=== PATIENT | female | born 1930 | race Caucasian/White ===

== ENCOUNTER 2017-07-14 15:17 | Emergency (ER) | payer MEDICARE, BC ==
[~2017-07-14] VITALS: Ht 175.3 cm; Wt 72.6 kg
[2017-07-14 15:30] VITALS: BP 119/77
[2017-07-14] MEDS ORDERED: Ertapenem 1 GM in NS 55 ML IVPB ONE (15:45)
[2017-07-14] MEDS ORDERED: cefTRIAXone 2 GM in NS 110 ML IVPB ONE (15:45)
[2017-07-14] MEDS ORDERED: Ertapenem (INVanz) 1gm Inj ONE (15:49)
[2017-07-14] MEDS ORDERED: DOCUSATE SODIU100 MG ORAL (16:05)
[2017-07-14] MEDS ORDERED: ATORVASTATIN CA40 MG ORAL (16:05)
[2017-07-14] MEDS ORDERED: FUROSEMIDE20 M1 ORAL (16:05)
[2017-07-14] MEDS ORDERED: ASPIR 8181 MG ORAL (16:05)
[2017-07-14] MEDS ORDERED: LEVETIRACETAM500 MG ORAL (16:05)
[2017-07-14] MEDS ORDERED: NITROFURANTOIN100 MG PO (16:05)
[2017-07-14] MEDS ORDERED: FOLIC ACID1 MG ORAL (16:05)
[2017-07-14] MEDS ORDERED: LEXAPRO10 MG ORAL (16:05)
[2017-07-14 16:10] LABS: MEAN CORPUSCULAR HEMOGLOBIN 32.3 PG (27.0-31.0); MEAN CORPUSCULAR HGB CONC 32.1 G/DL (32.0-36.0); MEAN CORPUSCULAR VOLUME 101 FL (80-99); MEAN PLATELET VOLUME 7.1 FL (6.5-10.1); PLATELET COUNT 120 K/UL (150-450); RED BLOOD COUNT 4.26 M/UL (4.20-5.40); RED CELL DISTRIBUTION WIDTH 12.6 % (11.6-14.8); WHITE BLOOD COUNT 12.8 K/UL (4.8-10.8)
[2017-07-14 16:13] LABS: BASOPHILS % (AUTO) 0.4 % (0.0-2.0); EOSINOPHILS % (AUTO) 0.2 % (0.0-3.0); LYMPHOCYTES % (AUTO) 2.8 % (20.0-45.0); MONOCYTES % (AUTO) 2.7 % (1.0-10.0)
[2017-07-14] MEDS ORDERED: ZYPREXA2.5 MG ORAL (16:14)
[2017-07-14] MEDS ORDERED: VITAMIN D400 INTLU ORAL (16:15)
[2017-07-14] MEDS ORDERED: SENNA8.6 M2 PO (16:15)
[2017-07-14] MEDS ORDERED: PREDNISONE2.5 MG ORAL (16:15)
[2017-07-14] MEDS ORDERED: BISACODYL5 MG ORAL (16:15)
[2017-07-14] MEDS ORDERED: ACETAMINOPHEN325 M1 ORAL (16:15)
[2017-07-14] MEDS ORDERED: ZANTAC150 MG ORAL (16:15)
[2017-07-14] MEDS ORDERED: PANTOPRAZOLE SO40 MG ORAL (16:15)
[2017-07-14] MEDS ORDERED: HYDRALAZINE HCL25 M1 ORAL (16:15)
[2017-07-14] MEDS ORDERED: MULTIVITAMINS1 EAC2 ORAL (16:15)
[2017-07-14 16:43] LABS: ALANINE AMINOTRANSFERASE 67 U/L (12-78); ALBUMIN/GLOBULIN RATIO 0.9 (1.0-2.7); ANION GAP 5 (5-15); ASPARTATE AMINO TRANSFERASE 83 U/L (15-37); CALCIUM 9.7 MG/DL (8.5-10.1); CARBON DIOXIDE 30 MMOL/L (21-32); CHLORIDE 102 MMOL/L (98-107); CKMB 2.4 NG/ML (0.0-3.6); POTASSIUM 3.7 MMOL/L (3.5-5.1); SODIUM 137 MMOL/L (136-145); TOTAL PROTEIN 7.3 G/DL (6.4-8.2)
--- NOTE | 2017-07-14 17:00 | Diagnostic Imaging Report ---
Indication: Dyspnea Comparison: None A single view chest radiograph was obtained. Findings: Interstitial edema demonstrated with cardiomegaly. Bones are osteopenic. Aorta is ectatic and calcified. IVC filter noted. Impression: CHF
[2017-07-14 17:48] VITALS: BP 116/75
[2017-07-14 19:30] VITALS: BP 120/65
[2017-07-14 20:11] LABS: APPEARANCE,URINE CLEAR; KETONES,URINE NEGATIVE (NEGATIVE); LEUKOCYTE ESTERASE ,URINE 1+ (NEGATIVE); NITRITE,URINE NEGATIVE (NEGATIVE); PH,URINE 6.5 (4.5-8.0); PROTEIN,URINE NEGATIVE (NEGATIVE); UROBILINOGEN,URINE NORMAL MG/DL (0.0-1.0)
[2017-07-14 20:26] LABS: RBC,URINE 0-2 /HPF (0 - 2); SQUAMOUS EPITHELIAL CELL,UR OCCASIONAL /LPF (NONE/OCC)
[2017-07-14 20:35] VITALS: BP 110/71
--- NOTE | 2017-07-15 09:49 | Diagnostic Imaging Report ---
Indication: Abdominal pain Comparison: None Technique: Contiguous helical CT images through the abdomen and pelvis was performed with intravenous contrast only. Oral contrast was not given. Axial, coronal and sagittal reconstructions were reformatted. CT Dose: Total DLP: 928 mGycm; Total CTDI volume 70.9 Findings: Liver is normal size with no focal lesions. Gallbladder is mildly distended but no radiopaque gallstones or CT evidence of cholecystitis. Mild intrahepatic biliary prominence. No common bile duct dilation. No radiopaque cholelithiasis or choledocholithiasis. Portal vein is patent. Spleen is normal. Pancreas is normal. Adrenal glands are normal. Kidneys are without hydronephrosis. Small cyst is seen in the left kidney. No solid renal masses. No evidence of bowel obstruction. There is mild bowel wall thickening of the transverse colon consistent with colitis versus underdistention artifact. No appendicitis, small bowel obstruction or diverticulitis. No free fluid or free air. Urinary bladder is normal. Right hip replacement is noted. There is left scoliotic curvature of the thoracolumbar spine. There is generalized osteopenia. No definite acute osseous abnormalities are seen. Moderate aortic calcifications. Lung bases show bibasilar atelectasis and or chronic changes. Impression: Mildly thickened transverse colon which may be under distention versus colitis. Left scoliotic curvature of the thoracolumbar spine with degenerative changes. No definite acute osseous abnormalities. Right hip replacement. Bibasilar atelectasis and or chronic changes. Distended gallbladder but no radiopaque cholelithiasis or choledocholithiasis. Mild intrahepatic biliary prominence.
--- NOTE | 2017-07-15 14:32 | Emergency Room Report ---
History of Present Illness General Chief Complaint: Nausea, Vomiting, and Diarrhea Source: Patient, EMS Present Illness HPI Patient is 86-year-old female who presented after increased of vomiting as well as generalized weakness. The patient been brought in by ambulance. 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 The patient recent urinalysis done by her primary care physician which showed a urinary infection which was only sensitive to imipenem and Macrobid. The patient was noted to have some increased weakness. She prior history of diabetes. The patient's primary care physician was at [facility]. Patient had multiple previous episodes of similar symptoms. He Allergies: Coded Allergies: No Known Allergies (Unverified , 07/14/17) Patient History Past Medical History: see triage record Reviewed Nursing Documentation: PMH: Agreed, PSxH: Agreed Nursing Documentation-PMH Past Medical History: No History, Except For Hx Cardiac Problems: Yes - A FIB Hx Hypertension: Yes Hx Cerebrovascular Accident: Yes - RT Hx Seizures: No - UTI Review of Systems All Other Systems: limited - mental status Physical Exam Vital Signs Date Time Temp Pulse Resp B/P (MAP) Pulse Ox O2 Delivery O2 Flow Rate FiO2 07/14/17 15:14 98.1 128 12 116/75 98 Room Air 07/14/17 17:48 2.0 Sp02 EP Interpretation: reviewed, normal General Appearance: normal inspection, mild distress, obese, Chronically Ill Head: atraumatic ENT: normal ENT inspection, hearing grossly normal, normal voice Neck: normal inspection, full range of motion, supple, no bony tend Respiratory: normal inspection, lungs clear, normal breath sounds, no respiratory distress, no retraction, no wheezing Cardiovascular #1: regular rate, rhythm, no edema Gastrointestinal: normal inspection, normal bowel sounds, non tender, soft, no guarding, no hernia Genitourinary: no CVA tenderness Musculoskeletal: normal inspection, back normal, normal range of motion Neurologic: normal inspection, alert, responsive Psychiatric: mood/affect normal Skin: no rash Medical Decision Making Diagnostic Impression: Primary Impression: Urinary tract infection Additional Impression: Dementia ER Course Patient presented for generalized weakness.Patient presented for generalized weakness. Differential diagnosis included was not limited to anemia, urinary tract infection, electrolyte abnormality, hypothyroidism, myocardial infarction , myasthenia gravis, dehydration, among others. Because of complexity of patient's case laboratory testing and imaging studies were ordered. Patient was noted to have evidence of urinary infection as well as some alteration of her mental status. The patient was discussed with her primary care physician. Patient's case was discussed with her daughter at length. She states that she does not want the patient admitted to [facility]. The patient daughter was advised risk benefits alternatives of leaving AGAINST MEDICAL ADVICE and she indicated understanding and all questions are answered patient still continued want to leave and signed AGAINST MEDICAL ADVICE. Despite risks including but not limited to disability and worsening of current lifestyle.The patient stated that she wanted to take [facility] Labs Test 07/14/17 15:55 07/14/17 19:55 White Blood Count 12.8 K/UL (4.8-10.8) Red Blood Count 4.26 M/UL (4.20-5.40) Hemoglobin 13.8 G/DL (12.0-16.0) Hematocrit 42.9 % (37.0-47.0) Mean Corpuscular Volume 101 FL (80-99) Mean Corpuscular Hemoglobin 32.3 PG (27.0-31.0) Mean Corpuscular Hemoglobin Concent 32.1 G/DL (32.0-36.0) Red Cell Distribution Width 12.6 % (11.6-14.8) Platelet Count 120 K/UL (150-450) Mean Platelet Volume 7.1 FL (6.5-10.1) Neutrophils (%) (Auto) 94.0 % (45.0-75.0) Lymphocytes (%) (Auto) 2.8 % (20.0-45.0) Monocytes (%) (Auto) 2.7 % (1.0-10.0) Eosinophils (%) (Auto) 0.2 % (0.0-3.0) Basophils (%) (Auto) 0.4 % (0.0-2.0) Sodium Level 137 MMOL/L (136-145) Potassium Level 3.7 MMOL/L (3.5-5.1) Chloride Level 102 MMOL/L (98-107) Carbon Dioxide Level 30 MMOL/L (21-32) Anion Gap 5 (5-15) Blood Urea Nitrogen 22 mg/dL (7-18) Creatinine 1.0 MG/DL (0.55-1.30) Estimat Glomerular Filtration Rate mL/min (>60) Glucose Level 95 MG/DL (74-106) Lactic Acid Level 1.80 mmol/L (0.66-2.22) Calcium Level 9.7 MG/DL (8.5-10.1) Total Bilirubin 0.5 MG/DL (0.2-1.0) Aspartate Amino Transf (AST/SGOT) 83 U/L (15-37) Alanine Aminotransferase (ALT/SGPT) 67 U/L (12-78) Alkaline Phosphatase 113 U/L (46-116) Total Creatine Kinase 71 U/L (26-308) Creatine Kinase MB 2.4 NG/ML (0.0-3.6) Creatine Kinase MB Relative Index 3.3 Troponin I 0.017 ng/mL (0.000-0.056) Pro-B-Type Natriuretic Peptide 1129 (0-125) Total Protein 7.3 G/DL (6.4-8.2) Albumin 3.5 G/DL (3.4-5.0) Globulin 3.8 g/dL Albumin/Globulin Ratio 0.9 (1.0-2.7) Urine Color Pale yellow Urine Appearance Clear Urine pH 6.5 (4.5-8.0) Urine Specific [place] 1.005 (1.005-1.035) Urine Protein Negative (NEGATIVE) Urine Glucose (UA) Negative (NEGATIVE) Urine Ketones Negative (NEGATIVE) Urine Occult Blood Negative (NEGATIVE) Urine Nitrite Negative (NEGATIVE) Urine Bilirubin Negative (NEGATIVE) Urine Urobilinogen Normal MG/DL (0.0-1.0) Urine Leukocyte Esterase 1+ (NEGATIVE) Urine RBC 0-2 /HPF (0 - 2) Urine WBC 5-10 /HPF (0 - 2) Urine Squamous Epithelial Cells Occasional /LPF Urine Bacteria None /HPF (NONE) Last Vital Signs Date Time Temp Pulse Resp B/P (MAP) Pulse Ox O2 Delivery O2 Flow Rate FiO2 07/14/17 20:35 98.0 98 21 110/71 96 Nasal Cannula 1.0 Status: unchanged Disposition: AGAINST MEDICAL ADVICE Condition: Serious Referrals: NON PHYSICIAN (PCP) Robert Elkins Jul 15, 2017 14:32
--- NOTE | 2017-07-25 08:32 | Cardiology Report ---
APPROVED REPORT EKG Measurement Heart [id number] Sinus tachycardia with 1st degree AV block with premature atrial complexes in a pattern of bigeminy Possible Left atrial enlargement Nonspecific T wave abnormality Abnormal ECG
== END 2017-07-14 20:30 | disposition left against medical advice (07) ==
LOC: EDBD 15:17 → EMR 16:04
DX: N39.0 Urinary tract infection, site not specified (principal); F03.90 Unspecified dementia, unspecified severity, without behavioral disturbance, psychotic disturbance, mood disturbance, and anxiety; I10 Essential (primary) hypertension; I48.91 Unspecified atrial fibrillation
CPT/HCPCS: 36415; 71010; 74177; 80053; 81003; 82550; 82553; 83605; 83880; 84484; 85025; 87040; 93005; 96374; 96375; 99284; J0696; J1335; Q9967